=== PATIENT | female | born 2000 | race African-American/Black ===

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

== ENCOUNTER 2022-01-23 18:03 | Emergency (ER) | payer OTHER, SELFPAY | END 2022-01-23 19:57 | disposition home or self-care (01) | LOC: ERS 18:03 | DX: J06.9 Acute upper respiratory infection, unspecified (principal); R11.2 Nausea with vomiting, unspecified | CPT/HCPCS: 99283 ==

== ENCOUNTER 2022-03-18 18:25 | Emergency (ER) | payer SELFPAY ==
[2022-03-18] MEDS ORDERED: Acetaminophen 325 MG TAB ONE (20:01)
== END 2022-03-18 22:18 | disposition home or self-care (01) ==
LOC: ERS 18:25
DX: B34.9 Viral infection, unspecified (principal); Z20.822 Contact with and (suspected) exposure to COVID-19
CPT/HCPCS: 87804; 99283; U0003; U0005